=== PATIENT | female | born 1935 | race Caucasian/White ===

== ENCOUNTER 2019-04-29 12:06 | Emergency (ER) | payer MEDICARE, BC ==
--- NOTE | 2019-04-29 12:56 | Emergency Department Record ---
History of Present Illness - General Chief Complaint: Cough Stated Complaint: COUGHING Time Seen by Provider: 04/29/19 12:27 Source: Patient Mode of Arrival: Ambulatory Limitations: No limitations - History of Present Illness Initial Comments: The patient is here due to a 2-3 day hx of cough and congestion. She is having some R sided CP when coughing at times. The patient denies any L sided CP, SOB, CARLOS, fever or sputum production. The patient lives in [place] and just flew here a week ago to visit family. MD Complaint: Cough Onset/Timin -: Days(s) Consistency: Intermittent, Getting worse - Related Data Home Medications Medication Instructions Recorded Confirmed Last Taken Cholecalciferol (Vitamin D3) 5,000 unit PO DAILY 04/29/19 04/29/19 04/29/19 [Vitamin D3] Cyanocobalamin (Vitamin B-12) 1,000 mcg PO DAILY 04/29/19 04/29/19 04/29/19 [Vitamin B-12] Furosemide [Lasix] 40 mg PO DAILY 04/29/19 04/29/19 04/29/19 Gabapentin [Neurontin] 300 mg PO BID 04/29/19 04/29/19 04/29/19 Levothyroxine Sodium [Tirosint] 88 mcg PO DAILY 04/29/19 04/29/19 04/29/19 Potassium Chloride [Klor-Con 10] 10 meq PO DAILY 04/29/19 04/29/19 04/29/19 Pravastatin Sodium [Pravachol] 40 mg PO DAILY 04/29/19 04/29/19 04/29/19 RX: Aspirin [Adult Low Dose 81 mg PO DAILY 04/29/19 04/29/19 04/29/19 Aspirin EC] Tolterodine Tartrate [Detrol LA] 4 mg PO QHS 04/29/19 04/29/19 04/28/19 Warfarin Sodium [Coumadin] 4 mg PO DAILY 04/29/19 04/29/19 04/29/19 Previous Rx's Medication Instructions Recorded RX: Doxycycline Monohydrate 100 mg PO BID 7 Days #14 capsule 04/29/19 [Mondoxyne Nl] Allergies Allergy/AdvReac Type Severity Reaction Status Date / Time No Known Drug Allergies Allergy Verified 04/29/19 12:16 Travel Screening - Travel/Exposure Within Last 30 Days Have you traveled within the last 30 days?: Yes Location Detail:: [place] - Travel/Exposure Within Last Year Have you traveled outside the [place] in the last year?: No - Additonal Travel Details Have you been exposed to anyone with a communicable illness?: No - Travel Symptoms Symptom Screening: None Review of Systems Constitutional: Denies: Chills, Fever Eyes: Denies: Eye discharge ENT: Reports: Congestion Respiratory: Reports: Cough. Denies: Dyspnea Cardiovascular: Reports: Chest pain (only when coughing.). Denies: Arrhythmia Endocrine: Denies: Fatigue Gastrointestinal: Denies: Nausea Genitourinary: Denies: Dysuria Musculoskeletal: Denies: Arthralgia Skin: Denies: Bruising Past Medical History - SOCIAL HISTORY Smoking Status: Never smoker Alcohol Use: None Drug Use: None - RESPIRATORY Hx Respiratory Disorders: No - CARDIOVASCULAR Hx Cardio Disorders: Yes Hx CHF: Yes - NEURO Hx Neuro Disorders: No - GI Hx GI Disorders: No - Hx Genitourinary Disorders: Yes Hx Bladder Problem: Yes - ENDOCRINE Hx Endocrine Disorders: Yes Hx Thyroid Disease: Yes - MUSCULOSKELETAL Hx Musculoskeletal Disorders: No - PSYCH Hx Psych Problems: No - HEMATOLOGY/ONCOLOGY Hx Hematology/Oncology Disorders: No Family Medical History Any Significant Family History?: No Physical Exam - General General Appearance: Alert, Oriented x3, Cooperative, No acute distress - Head Head exam: Atraumatic, Normocephalic, Normal inspection - Eye Eye exam: Normal appearance, PERRL - ENT Throat exam: Normal inspection. negative: Tonsillar erythema, Tonsillar exudate - Neck Neck exam: Normal inspection, Full ROM. negative: Tenderness - Respiratory Respiratory exam: Normal lung sounds bilaterally. negative: Decreased breath sounds, Rales, Respiratory distress, Rhonchi, Stridor, Wheezes - Cardiovascular Cardiovascular Exam: Regular rate, Normal rhythm, Normal heart sounds. negative: Diastolic murmur, Irregular rhythm, Systolic murmur - GI/Abdominal GI/Abdominal exam: Soft, Normal bowel sounds. negative: Tenderness - Extremities Extremities exam: Normal inspection, Full ROM, Normal capillary refill. negative: Tenderness - Neurological Neurological exam: Alert, Normal gait. negative: Abnormal gait, Motor sensory deficit - Psychiatric Psychiatric exam: negative: Anxious Course Vital Signs 04/29/19 12:24 Temperature 98.3 F Pulse Rate 62 Respiratory 18 Rate Blood Pressure 106/58 Pulse Ox 97 - Reevaluation(s) Reevaluation #1: The patient is doing well at this time and is resting comfortably with no new complaints. She has had no CP or SOB here but is intermittently coughing. She does have a LBBB on her EKG and a trop that is in the high indeterminant range. The patient's CK-MB is normal though. I did explain to her that due to the results of her testing I am concerned the vague R sided discomfort she had earlier could be from her heart. Because of that I did recommend a short stay hospital admission for monitoring and repeat blood testing. I explained that by NOT keeping her here the patient could go home and have an IA, stroke, become disabled and even . The patient and daughter understands the risks of leaving and accept the risks. The patient presently has proper decision making capacity and understands the risks of refusing to stay. She is to return to the ER for any problems or changes in her health. 04/29/19 14:32 Medical Decision Making - Data Complexity MDM Data: Labs Ordered and/or Reviewed, X-Ray Ordered and/or Reviewed, EKG Ordered and/or Reviewed - Lab Data Result diagrams: 04/29/19 13:15 04/29/19 13:15 - EKG Data -: EKG Interpreted by Me (NSR with premature atrial complexes. LBBB.) EKG: LBBB - Radiology Data Radiology results: Report reviewed (CXR: Neg for any acute process.) Disposition Disposition: Discharge Clinical Impression: Upper respiratory infection Disposition: Home, Self-Care Condition: (2) Stable Instructions: Acute Bronchitis (ED) Additional Instructions: Please continue your regular medicines as directed and add the Doxycycline for a week. Please return to the ER for any worsening cough, or any fever, trouble breathing or any chest pain. Prescriptions: RX: Doxycycline Monohydrate [Mondoxyne Nl] 100 mg PO BID 7 Days #14 capsule Forms: Patient Portal Access Time of Disposition: 14:32 Quality - Quality Measures Quality Measures: N/A - Blood Pressure Screening View Details: Yes Does Patient Have Any of the Following: No Blood Pressure Classification: Normal BP Reading Systolic Measurement: 106 Diastolic Measurement: 58 Screening for High Blood Pressure: < Normal BP, F/U Not Required > [[id number]]
[2019-04-29 13:24] LABS: ABSOLUTE NEUTROPHIL COUNT 2.68; HEMATOCRIT 37.4 % (35.0-47.0); HEMOGLOBIN 11.8 gm/dl (11.6-16.0); MEAN CORPUSCULAR HGB CONC 31.6 g/dl (32-36); MEAN PLATELET VOLUME 10.5 fl (7.4-10.4); PLATELET COUNT 187 K/uL (130-400); RED BLOOD COUNT 3.74 M/uL (3.80-5.40); RED CELL DISTRIBUTION WIDTH 15.2 % (11.5-14.5); WHITE BLOOD COUNT W/O DIFF 5.8 K/uL (4.2-12.2)
[2019-04-29 13:26] LABS: MEAN CORPUSCULAR HEMOGLOBIN 31.5 pg (27-33)
[2019-04-29 13:35] LABS: INR 3.1; PARTIAL THROMBOPLASTIN TIME 52.7 SECONDS (24.5-39.1); PLATELET ESTIMATE NORMAL (NORMAL); PROTHROMBIN TIME (PATIENT) 30.2 SECONDS (9.5-12.1)
[2019-04-29 13:52] LABS: BILIRUBIN,TOTAL 0.6 mg/dL (0.2-1.0); CREATININE 2.1 mg/dL (0.5-0.9)
[2019-04-29 13:53] LABS: TOTAL PROTEIN 5.9 g/dL (6.6-8.7)
[2019-04-29 13:58] LABS: ALB/GLOB RATIO 1.4 (1.1-1.8); ALBUMIN 3.4 g/dL (4.0-5.0)
--- NOTE | 2019-04-30 14:13 | RADIOLOGY REPORT ---
EXAM: CHEST, TWO VIEWS HISTORY: COUGH SINCE FRIDAY. TECHNIQUE: PA and lateral upright views of the chest were obtained. Comparison: None. 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 The heart is normal in size. There is calcification of the aorta. The mediastinum and pulmonary vasculature are normal. There are no visible acute infiltrates or effusions. There is no pneumothorax. Old healed rib fractures are present bilaterally. No acute osseous abnormalities are identified. IMPRESSION: NO ACUTE CHEST PATHOLOGY. JOB NUMBER: [id number] [facility]
== END 2019-04-29 14:54 | disposition home or self-care (01) ==
LOC: ER 12:06
DX: J06.9 Acute upper respiratory infection, unspecified (principal); R05 Cough; R07.9 Chest pain, unspecified; I50.9 Heart failure, unspecified; I44.7 Left bundle-branch block, unspecified; Z95.0 Presence of cardiac pacemaker
CPT/HCPCS: 71046; 80053; 82550; 82553; 84145; 84484; 85027; 85610; 85730; 93005; 93010; 99284